=== PATIENT | male | born 1990 | race Hispanic/Latino ===

== ENCOUNTER 2017-05-11 11:39 | Emergency (ER) | payer BC | END 2017-05-11 12:59 | disposition home or self-care (01) | LOC: EDH 11:39 | DX: S93.491A Sprain of other ligament of right ankle, initial encounter (principal); X58.XXXA Exposure to other specified factors, initial encounter; Y93.89 Activity, other specified; Y92.098 Other place in other non-institutional residence as the place of occurrence of the external cause; Y99.8 Other external cause status | CPT/HCPCS: 73610 ==

== ENCOUNTER 2018-06-14 14:10 | Emergency (ER) | payer BC | END 2018-06-14 14:43 | disposition home or self-care (01) | LOC: EDH 14:10 | DX: L25.9 Unspecified contact dermatitis, unspecified cause (principal); Z72.0 Tobacco use ==

== ENCOUNTER 2018-08-08 18:09 | Emergency (ER) | payer BC | END 2018-08-08 18:32 | disposition home or self-care (01) | LOC: EDH 18:09 | DX: L25.9 Unspecified contact dermatitis, unspecified cause (principal); Z72.0 Tobacco use ==

== ENCOUNTER 2019-01-27 11:25 | Emergency (ER) | payer BC, OTHER ==
[2019-01-27] MEDS ORDERED: TETANUS/DIPHTHERIA TOXOID [ADULT] 0.5 ML VIAL IM ONE (11:38)
== END 2019-01-27 12:55 | disposition home or self-care (01) ==
LOC: EDH 11:25
DX: S71.111A Laceration without foreign body, right thigh, initial encounter (principal); Z72.0 Tobacco use; W26.0XXA Contact with knife, initial encounter; Y93.89 Activity, other specified; Y92.89 Other specified places as the place of occurrence of the external cause; Y99.8 Other external cause status
CPT/HCPCS: 12031; 90471; 90714

== ENCOUNTER 2019-02-06 13:52 | Emergency (ER) | payer SELFPAY | END 2019-02-06 15:47 | disposition home or self-care (01) | LOC: EDH 13:52 | DX: S71.111D Laceration without foreign body, right thigh, subsequent encounter (principal); Z72.0 Tobacco use; X58.XXXD Exposure to other specified factors, subsequent encounter | CPT/HCPCS: 99281 ==